=== PATIENT | female | born 1945 | race Caucasian/White ===

== ENCOUNTER → 2018-03-12 13:14 | Outpatient (CLI) | payer MEDICARE, OTHER, SELFPAY ==
--- NOTE | 2018-03-12 13:20 | CT_ITS ---
EXAM: CT LUNG LOW DOSE WO CONTRAST COMPARISON: Rib series from May 2017. PA and lateral chest from 2007 HISTORY: Smoker. One pack per day for 49 years equal 49 pack-year. Currently smoking . No symptoms of lung cancer TECHNIQUE: The exam was performed on a GE Light Speed [address] scanner using 3.0 mGy CTDI. A low dose helical CT CHEST was performed on a multi-detector scanner. All CT scans at this facility use one or more dose reduction techniques, viz.: automated exposure control; ma/kV adjustment per patient size (including targeted exams where dose is matched to indication; i.e. head) or iterative reconstruction technique. The LDCT was performed in a facility that meets the criteria for the screening program. Data regarding this exam was submitted to ACR which is an approved registry. The order for this exam indicates that it came as a result of a lung cancer screening counseling shard decision-making visit that included all the elements required of such a visit including smoking cessation. The radiologist interpreting this exam meets the CMS criteria for the LDCT lung cancer screening program. The exam is reported using the Lung-RADS classification scale and reported to the ACR registry. NOTE: This study was performed for the specific purposes of lung cancer screening and is not an alternative to diagnostic chest CT. RADIATION DOSE: CTDI vol(CT dose Index-volume) = 2.9mGy DLP (Dose Length Product) = 96.27 mGy-cm FINDINGS: No suspicious lung nodule or mass Indeterminate/Non-actionable Nodules(Category2): :. Small 3 mm X 4.2 mm height density at anterior periphery of the right upper lobe axial slice 31, sagittal 20. The follow-up in 10-12 months to be adequate.Based on the axial appearance. It may be related to scarring There is some scant linear scarring towards the right apex. Note minor tiny 3 mm nodular density associated as well. Axial image 15. Not of concern. is some minor density along the major fissure on the left axial image 43. Small sliding bilobed nodular density here I believe reflects some thickening at the inferior fissure. 5 mm x 4.5 mm. Tiny subpleural density axial slice 41 posterior right upper lobe just above the fissure. 2.5 mm size, barely evident. Emphysema: Mild centrilobular emphysematous changes . No focal infiltrate or pneumonia. No mediastinal adenopathy of significance. No mass. Scattered small nodes. No hilar adenopathy. Calcified aorta. Densely calcified left main and LAD. Heart normal size. Upper abdomen. Unremarkable. No pleural lesions. Chest wall appears satisfactory. T-spine intact with degenerative disc changes. There may be some very inferior endplate cavity at T12 T12 which could reflect minor old superior endplate compression changes but this is very subtle, negligible. Cervical Spondylosis lower C-spine most notable. Chest wall. (2 or 3 nodes seen overlying right chest wall at the far lateral right breast. These are rather low position for axillary lymph nodes. Largest measuring 12 mm length. Warrant follow-up palpation has patient had previous breast surgery-I don't see any clips or axillary dissection confirm such may merely be very modest breast. Few small unremarkable axillary nodes bilaterally appear normal. . IMPRESSION: 1. No suspicious lung nodule or mass. No significant hilar no mediastinal adenopathy. Airways upper normal thickness. No significant axillary adenopathy 2. Lung RADS Category: 2 Small pulmonary densities. Tiny nodules. Minimal observations. Follow-up LDCT 10 -12 months adequate 3. There are 2 or 3 lymph nodes at deep lateral right breast overlying chest wall;... Suggest physical exam to include palpation/of this ar
== END ==
PROVIDERS: Family Provider Nurse Practitioner Family; PCP Family Medicine; Visit Provider Family Medicine
DX: Z12.2 Encounter for screening for malignant neoplasm of respiratory organs (principal); Z87.891 Personal history of nicotine dependence

== ENCOUNTER → 2019-04-08 13:22 | Outpatient (CLI) | payer MEDICARE, OTHER, SELFPAY ==
--- NOTE | 2019-04-08 13:26 | CT_ITS ---
PROCEDURE: CT LUNG SCREENING CLINICAL INDICATION: H/O NICOTINE DEPENDENCE Thirty pack-year smoking history, asymptomatic for lung cancer COMPARISON: LUNGSCREEN CT lung screening from 03/12/2018 TECHNIQUE: The exam was performed on a GE orangutrans Speed [address] scanner using 2.90 mGy CTDI. A low dose helical CT CHEST was performed on a multi-detector scanner. All CT scans at the facility use one or more dose reduction, viz: automated exposure control, ma/kV adjustment per patient size (including targeted exams where dose is matched to indication, i.e. head), or iterative reconstruction technique. The LDCT was performed in a facility that meets the criteria for the screening program. Data regarding this exam was submitted to ACR which is an approved registry. The order for this exam indicates that it came as a result of a lung cancer screening counseling shard decision-making visit that included all the elements required of such a visit including smoking cessation. The radiologist interpreting this exam meets the CMS criteria for the LDCT lung cancer screening program. The exam is reported using the Lung-RADS classification scale and reported to the ACR registry. NOTE: This study was performed for the specific purposes of lung cancer screening and is not an alternative to diagnostic chest CT. RADIATION DOSE: CTDI vol(CT dose Index-volume) = 2.90mG DLP (Dose Length Product) = 100.03 mGcm FINDINGS: There are no previous exams available for comparison. There are several small noncalcified pulmonary nodules in the apices on both sides the largest in the right apex measuring up to 4 mm.. Coronary artery calcifications are present. No mediastinal or hilar mass. OTHER FINDINGS: Small hiatal hernia, COPD. Bilateral mastectomies. There is some nodularity noted in the right mid chest laterally and may be due to a lymph node measuring approximately 9 mm. IMPRESSION: Small bilateral upper lobe pulmonary nodular opacities. These are nonspecific and are 4 mm or less. There are no previous exams available for comparison. Suggest 3 month follow-up diagnostic chest CT to confirm short term stability in this patient that has had bilateral mastectomy. Coronary artery calcifications are present Lung rads category 4 mildly suspicious Recommend [address] follow-up Dictated by: Jj Khan MD 04/13/2019 09:56 Signed by: <Electronically signed by Jj Khan MD in [place]> 04/13/2019 09:56
== END ==
PROVIDERS: PCP Family Medicine; Visit Provider Family Medicine
DX: Z87.891 Personal history of nicotine dependence (principal); Z12.2 Encounter for screening for malignant neoplasm of respiratory organs

== ENCOUNTER 2020-07-29 00:26 | Emergency (ER) | payer MEDICARE, SELFPAY ==
[2020-07-29 00:36] VITALS: BP 164/83; PULSE 86; RESP 18; TEMP 36.7; O2SAT 96
--- NOTE | 2020-07-29 00:39 | CT_ITS ---
PROCEDURE: CT ABDOMEN PELVIS WO CON CLINICAL INDICATION: Left flank pain, hx kidney stones COMPARISON: No exams were available for comparison TECHNIQUE: Axial images obtained with sagittal and coronal reformats. All CT scans at the facility use one or more dose reduction, viz: automated exposure control, ma/kV adjustment per patient size (including targeted exams where dose is matched to indication, i.e. head), or iterative reconstruction technique. FINDINGS: Lower thorax: No acute finding ABDOMEN: Liver: No masses or biliary dilatation. Gallbladder: Nondistended. No radio opaque stones. Pancreas: No masses or peripancreatic fluid collections. Spleen: unremarkable Adrenals: unremarkable Kidneys/ureters: The right kidney and collecting system appear normal. There is swelling of the left kidney with prominent perinephric stranding and moderate hydronephrotic change. There is hydroureter down to the UV junction where there is apparent tiny 1-2 mm calculus either at the UV junction or in the tunnel entering the bladder. ABDOMEN & PELVIS: Stomach bowel: There is a small hiatal hernia. Stomach and duodenal sweep are grossly normal. The small bowel is normal. There is moderate scattered stool and gas seen throughout the colon. There is diffuse diverticulosis of the descending and sigmoid colon without definite evidence of diverticulitis. There is moderate stool in the rectum. Peritoneum: No abnormal fluid collections. No obvious inflammatory changes. No free air. Lymph nodes: No enlarged lymph nodes apparent. Vasculature: There is prominent diffuse arthrosclerotic calcification of the abdominal aorta and proximal iliac arteries but no evidence of aneurysm. No evidence of abdominal aortic aneurysm. . Bones: There is mild sclerosis along with subchondral cysts in the left femoral head the appearance suggesting avascular necrosis. PELVIS: Reproductive: The uterus is normal in size and in the midline. Bladder: The urinary bladder is decompressed, there is no free fluid in the pelvis. Appendix: Unremarkable. No distention or periappendiceal phlegmonous change. IMPRESSION: Tiny distal ureteral calculus at the UV junction or in the tunnel left-side causing moderate obstructive uropathy of the left kidney. 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 Billy Tolentino MD 07/29/2020 08:21 Dr. Billy Tolentino MD in [place] 07/29/2020 08:21
[2020-07-29 00:51] LABS: Microscopic, Urine URINE MICROSCOPIC (MICROSCOPIC)
[2020-07-29 00:52] LABS: Appearance,Urine SL CLOUDY (Clear); Bilirubin,Urine Negative (Negative); Blood, Urine 3+ (Negative); Color,Urine YELLOW (Yellow); Glucose,Urine (UA) Negative (Negative); Ketones,Urine Negative (Negative); Leukocyte Esterase,Urine Negative (Negative); Nitrate,Urine Negative (Negative); Protein,Urine 1+ (Negative); Specific Gravity, Urine >= 1.030 (1.005-1.030); Urobilinogen,Urine 0.2 EU/dl (0.2)
[2020-07-29 00:55] LABS: RBC,Urine 20-50 #/hpf (0-3)
[2020-07-29 00:59] LABS: Basophils # 0.1 K/mm3 (0-0.2); Basophils % 0.4 % (0.1-2.0); Eosinophils # 0.2 K/mm3 (0.0-0.4); Hematocrit 45.8 % (37.0-47.0); Hemoglobin 14.7 g/dL (12.2-16.2); Lymphocytes # 1.7 K/mm3 (0.7-4.5); Lymphocytes % 9.9 % (10-50); Mean Corpuscular HGB Conc 32.1 g/dL (31.8-35.4); Mean Corpuscular Hemoglobin 31.6 pg (27.0-31.2); Mean Corpuscular Volume 98.5 fl (81-99); Mean Platelet Volume 8.6 fl (7.4-10.4); Monocytes # 0.6 K/mm3 (0.1-1.0); Monocytes % 3.2 % (1.7-9.3); Neutrophils % 85.5 % (37.0-80.0); Platelet Count 223 K/mm3 (142-424); Red Blood Count 4.65 M/mm3 (4.20-5.40); Red Cell Distribution Width 13.1 % (11.5-17.5); White Blood Count 17.6 K/mm3 (4.8-10.8)
[2020-07-29 01:01] LABS: MANUAL DIFFERENTIAL MANUAL DIFFERENTIAL (MANUAL DIFF)
[2020-07-29 01:10] LABS: Alanine Aminotransferase 12 U/L (12-78); Albumin Level 4.7 g/dl (3.5-5.0); Albumin/Globulin Ratio 1.3 (1.1-1.8); Alkaline Phosphatase 90 U/L (38-126); Anion Gap 13.7 mEq/L (5-15); Aspartate Amino Transferase 23 U/L (14-36); Bilirubin,Total 0.5 mg/dl (0.2-1.3); Blood Urea Nitrogen 17 mg/dl (7-17); Calcium 10.2 mg/dl (8.4-10.2); Carbon Dioxide 28 mmol/L (22.0-30.0); Chloride 102 mmol/L (98-107); Creatinine Clearance Estimated 49 mL/min (50-200); Estimated Glomerular Filt Rate 49 ml/min (>60); GFR (African American) 59 ML/MIN (>60); Globulin 3.5 g/dL (1.3-3.2); Glucose 152 mg/dl (74-100); Potassium 3.7 mmoL/L (3.5-5.1); Sodium 140 mmol/L (136-145); Total Protein,Serum 8.2 g/dl (6.3-8.2)
[2020-07-29 01:15] LABS: Lymphocytes % 11 % (10-50); Macrocytosis 1+; Monocytes % 3 % (2-9); Neutrophils % 84 % (42-76); Platelet Estimate Normal; Total Cells Counted 100
[2020-07-29 02:01] VITALS: BP 167/102; PULSE 85; RESP 16; TEMP 36.6; O2SAT 97
--- NOTE | 2020-07-29 02:15 | HMH.EDGENADL ---
ED Disposition Clinical Impression: Kidney stone Disposition: Home, Self-Care Condition on Discharge: Good Additional Instructions: Follow up with Urology. Return with fever > 100.4, inability to tolerate fluids, severe pain even with oral pain medication. Prescriptions: Ibuprofen [Ibuprofen 600mg Tablet] 600 mg PO Q6HP PRN #20 tab PRN Reason: Moderate Pain Prescription Printed Hydrocodone/Acetaminophen [Oran 5-325 Tablet] 1 each PO Q6HP PRN #6 tab PRN Reason: Severe Pain Prescription Printed Tamsulosin HCl [Flomax 0.4mg capsule] 0.4 mg PO HS #7 cap Prescription Printed Ondansetron [Zofran 4mg ODT] 4 mg PO TIDP PRN #9 tab PRN Reason: Nausea And Vomiting Prescription Printed Referrals: Elina Siemon MD [Primary Care Provider] - Phani Arroyo MD [Staff Physician] - - Critical Care Critical Care Time: No Attestation: On 07/29/20, the high probability of a clinically significant, sudden or life threatening deterioration of the following system(s) required my full and direct attention, intervention and personal management. The time I documented below is in addition to time spent performing reported procedures but includes the following listed in this critical care notation. Medical Decision Making - Medical Records Medical records reviewed: Yes: I reviewed the patient's medical records. - Josiah Inquiry Pt receiving controlled substance: Yes Josiah was queried for this patient: No Reason not queried -: Josiah login issues Risks and benefits of using a controlled substance: were discussed with pt by me Vital Signs: 07/29/20 00:36 07/29/20 02:00 07/29/20 02:01 Temperature 98.1 F 97.9 F Temperature Source Oral Oral Pulse Rate 85 Pulse Rate [Right] 86 Respiratory Rate 18 16 Blood Pressure 167/102 H Blood Pressure [Right Arm] 164/83 H Blood Pressure Mean [Right Arm] 110 Blood Pressure Source Automatic Cuff Blood Pressure Source [Right Arm] Automatic Cuff Blood Pressure Position Sitting Blood Pressure Position [Right Arm] Sitting 02 Sat by Pulse Oximetry 96 Oxygen Delivery Method Room Air Room Air Room Air - Lab Data Lab Results 07/29/20 00:45: Urine Color Yellow, Urine Appearance Sl cloudy, Urine pH 6.0, Ur Specific Conifer >= 1.030, Urine Protein 1+, Urine Glucose (UA) Negative, Urine Ketones Negative, Urine Blood 3+, Urine Nitrate Negative, Urine Bilirubin Negative, Urine Urobilinogen 0.2, Ur Leukocyte Esterase Negative, Urine RBC 20-50, Ur Squamous Epith Cells 3-5 07/29/20 00:50: WBC 17.6 H, RBC 4.65, Hgb 14.7, Hct 45.8, MCV 98.5, MCH 31.6 H, MCHC 32.1, RDW 13.1, Plt Count 223, MPV 8.6, Neut % (Auto) 85.5 H, Lymph % (Auto) 9.9 L, Frontier % (Auto) 3.2, Eos % (Auto) 1.0, Baso % (Auto) 0.4, Neut # (Auto) 15.0 H, Lymph # (Auto) 1.7, Frontier # (Auto) 0.6, Eos # (Auto) 0.2, Baso # (Auto) 0.1, Total Counted 100, Neutrophils % (Manual) 84 H, Band Neutrophils % 2.0, Lymphocytes % (Manual) 11, Monocytes % (Manual) 3, Platelet Estimate Normal, Macrocytosis 1+ 07/29/20 00:50: Sodium 140, Potassium 3.7, Chloride 102, Carbon Dioxide 28, Anion Gap 13.7, BUN 17, Creatinine 1.10 H, Estimated Creat Clear 49, Estimated GFR 49 L, Est GFR ( Amer) 59, Glucose 152 H, Calcium 10.2, Total Bilirubin 0.5, AST 23, ALT 12, Alkaline Phosphatase 90, Total Protein 8.2, Albumin 4.7, Globulin 3.5 H, Albumin/Globulin Ratio 1.3 Result diagrams: 07/29/20 00:50 07/29/20 00:50 Orders (Tests/Meds): ED MEDICATIONS Discontinued Medications Generic Name Dose Route Start Last Admin Trade Name Freq PRN Reason Stop Dose Admin Lactated Ringer's 1,000 mls @ 999 mls/hr 07/29/20 00:45 07/29/20 00:55 Lactated Ringer's 1000 Ml Bag IV 07/29/20 01:45 999 mls/hr .Q1H1M DENISE Administration Ketorolac Tromethamine 15 mg 07/29/20 00:39 07/29/20 00:54 Ketorolac 30mg/Ml Vial IV 07/29/20 00:40 15 mg ONCE ONE Administration Ondansetron HCl 4 mg 07/29/20 00:38 07/29/20 00:54 Onda
== END 2020-07-29 02:05 | disposition home or self-care (01) ==
PROVIDERS: Emergency Provider Emergency Medicine; PCP Family Medicine
DX: N20.0 Calculus of kidney (principal); E78.5 Hyperlipidemia, unspecified; F17.210 Nicotine dependence, cigarettes, uncomplicated
CPT/HCPCS: 74176; 80053; 81001; 85007; 85025; 96365; 96375; 99283; J2405

== ENCOUNTER 2023-02-08 23:03 | Emergency (ER) | payer MEDICARE, SELFPAY ==
[2023-02-08 23:04] VITALS: BP 200/100; PULSE 67; RESP 20; TEMP 36.6; O2SAT 98; BMI 28.3
[2023-02-08 23:23] LABS: Microscopic, Urine URINE MICROSCOPIC (MICROSCOPIC)
[2023-02-08 23:25] LABS: Appearance,Urine SL CLOUDY (Clear); Blood, Urine 3+ (Negative); Color,Urine BROWN (Yellow); Glucose,Urine (UA) Negative (Negative); Ketones,Urine Negative (Negative); Leukocyte Esterase,Urine Negative (Negative); Nitrate,Urine Negative (Negative); PH,Urine 6.5 (5.0-8.5); Protein,Urine 2+ (Negative); Specific Gravity, Urine 1.025 (1.005-1.030)
[2023-02-08 23:27] LABS: Bilirubin,Urine 1+ (Negative)
[2023-02-08 23:31] LABS: Bacteria,Urine Trace /lpf; RBC,Urine 20-50 #/hpf (0-3); WBC,Urine Occasional #/hpf (0-3)
[2023-02-08 23:33] LABS: Basophils % 0.5 % (0.1-2.0); Eosinophils # 0.1 K/mm3 (0.0-0.4); Eosinophils % 1.3 % (0.1-12.0); Hemoglobin 13.3 g/dL (12.2-16.2); Lymphocytes % 36.2 % (10-50); Mean Corpuscular HGB Conc 32.5 g/dL (31.8-35.4); Mean Corpuscular Hemoglobin 30.6 pg (27.0-31.2); Mean Corpuscular Volume 94.1 fl (81-99); Mean Platelet Volume 8.4 fl (7.4-10.4); Monocytes # 0.6 K/mm3 (0.1-1.0); Monocytes % 7.3 % (1.7-9.3); Neutrophils # 4.5 K/mm3 (1.8-7.8); Neutrophils % 54.7 % (37.0-80.0); Platelet Count 256 K/mm3 (142-424); Red Blood Count 4.36 M/mm3 (4.20-5.40); Red Cell Distribution Width 13.1 % (11.5-17.5); White Blood Count 8.3 K/mm3 (4.8-10.8)
[2023-02-08 23:43] LABS: Alanine Aminotransferase 15 U/L (12-78); Albumin/Globulin Ratio 1.3 (1.1-1.8); Alkaline Phosphatase 81 U/L (38-126); Anion Gap 11.9 mEq/L (5-15); Aspartate Amino Transferase 23 U/L (14-36); Bilirubin,Total 0.5 mg/dl (0.2-1.3); Blood Urea Nitrogen 21 mg/dl (7-17); Calcium 9.3 mg/dl (8.4-10.2); Carbon Dioxide 33 mmol/L (22.0-30.0); Chloride 101 mmol/L (98-107); Creatinine Clearance Estimated 50 mL/min (50-200); Estimated Glomerular Filt Rate 61 ml/min (>60); GFR (African American) 74 ML/MIN (>60); Glucose 108 mg/dl (74-100); Sodium 143 mmol/L (136-145)
[2023-02-08 23:44] LABS: Potassium 2.9 mmoL/L (3.5-5.1)
--- NOTE | 2023-02-08 23:44 | PC.NURSE ---
notified arleth of critical potassium 2.9
--- NOTE | 2023-02-09 00:10 | CT_ITS ---
PROCEDURE INFORMATION: Exam: CT Abdomen And Pelvis Without Contrast Exam date and time: 02/09/2023 12:34 AM Age: 77 years old Clinical indication: Abdominal pain; Additional info: R/O stone, hematuria w/ back pain TECHNIQUE: Imaging protocol: Computed tomography of the abdomen and pelvis without contrast. Total images: 278 Radiation optimization: All CT scans at this facility use at least one of these dose optimization techniques: automated exposure control; mA and/or kV adjustment per patient size (includes targeted exams where dose is matched to clinical indication); or iterative reconstruction. REPORTING DATA: Count of CT and Cardiac NM exams in prior 12 months: This patient has received 0 known CTs and 0 known cardiac nuclear medicine studies in the 12 months prior to the current study. COMPARISON: CT ABDOMEN PELVIS WO CON 07/29/2020 1:13 AM FINDINGS: Lungs: Fine linear basilar atelectasis or scarring. Heart: Normal heart size. Trace pericardial fluid versus thickening. Coronary arteries: Coronary artery calcifications. Diaphragm: Small hiatal hernia. Liver: Stable subcentimeter left hepatic hypodensity in keeping with benign cyst. No liver mass. Normal size and contour. Gallbladder and bile ducts: Normal. No calcified stones. No ductal dilation. Pancreas: Normal. No ductal dilation. Spleen: Normal. No splenomegaly. Adrenal glands: Stable mild thickening lateral limb right adrenal gland. Kidneys and ureters: [id number] left hydronephrosis and hydroureter. No nephrolithiasis or ureteral stones. Asymmetric left perinephric edema and trace fluid. Dilated left ureter transitions to a collapsed distal ureter at the level of the pelvic inlet without visualized stone. Stomach and bowel: Mild gastric distention with recently ingested content. No ileus or bowel obstruction. Subjective wall thickening proximal jejunum may reflect enteritis. Moderate colonic and rectal stool burden. Severe diverticulosis of the descending colon. No acute diverticulitis. Appendix: Normal appendix. Intraperitoneal space: Nonspecific benign appearing 2 cm cyst in the left paracolic gutter, increased in size from 16 mm on the prior study. No ascites. No free air. Vasculature: Severely atherosclerotic abdominal aorta without aneurysm. Lymph nodes: Unremarkable. No enlarged lymph nodes. Urinary bladder: Collapsed bladder. No bladder stones. Reproductive: Atrophic uterus and ovaries. Bones/joints: Osteopenia. Mild degenerative changes thoracolumbar spine. Degenerative change and chronic avascular necrosis left femoral head with subchondral collapse and subchondral cystic changes, progressed from prior exam. Soft tissues: Unremarkable. IMPRESSION: 1. [id number] left hydronephrosis and hydroureter to the level of the pelvic inlet. No visualized ureteral stone. Rule out ureteral stricture or nonvisualized ureteral lesion. Recommend follow-up urology consultation. 2. No nephrolithiasis. 3. Asymmetric left perinephric edema from obstructive uropathy versus superimposed infection/pyelonephritis. 4. Severe diverticulosis of the descending colon without diverticulitis. 5. Interval worsening chronic AVN left femoral head. 6. Additional chronic and incidental findings.
--- NOTE | 2023-02-09 00:45 | PC.NURSE ---
Rounded on pt. Updated that we are waiting on scan results. No other needs at this time.
--- NOTE | 2023-02-09 02:22 | HMH.EDUROGF ---
Discharge Plan Disposition Patient Disposition: Home, Self-Care Prescriptions Prescriptions: New cephalexin [cephalexin] 500 mg capsule 500 mg PO TID Qty: 21 0RF No Action lovastatin 40 MG tablet 40 mg PO DAILY hydrocodone-acetaminophen 1 EACH tablet 1 each PO Q6HP PRN (Reason: Severe Pain) Qty: 6 0RF ondansetron 4 MG tablet,disintegrating 4 mg PO TIDP PRN (Reason: Nausea And Vomiting) Qty: 9 0RF tamsulosin 0.4 MG capsule 0.4 mg PO HS Qty: 7 0RF Rx Instructions: take once per day until stone is passed ibuprofen 600 MG tablet 600 mg PO Q6HP PRN (Reason: Moderate Pain) Qty: 20 0RF Referrals Follow up/Referrals: Elina Simeon MD [Primary Care Provider] - See instructions Huy Palmer MD [Referring] - See instructions Clinical Impressions Clinical Impression: Hydronephrosis, Acute left flank pain Instructions Patient Instructions: DI for Flank Pain Discharge ED Provider: Jeffery (ED)Han Female Urogenital HPI General Chief complaint: Urogenital-Female Stated complaint: possible kidney stone Time Seen by Provider: 02/09/23 02:00 Mode of Arrival: Ambulatory Source of Information: Patient, Relative and Medical Record Limitations: No Limitations Description of Symptoms (Recalled from ER Triage Doc. by RN): Pt states she has had a decrease in her urine output, bilateral lower back pain and nausea for the past few days. Pt has hx of kidney stones and states she believes it to be a stone. History of Present Illness HPI Narrative: pt with lt flank pain with nausea over the last few days and dec urine output Complaint: other (flank pain) Onset (ago): day(s) Severity: moderate Duration: intermittent Related Data Home Medications Medication Instructions Recorded Confirmed lovastatin 40 mg tablet 40 mg PO DAILY Cholesterol 07/29/20 07/29/20 Previous Rx's Medication Instructions Recorded hydrocodone 5 mg-acetaminophen 325 1 each PO Q6HP PRN Severe Pain #6 07/29/20 mg tablet tabs ibuprofen 600 mg tablet 600 mg PO Q6HP PRN Moderate Pain 07/29/20 #20 tabs ondansetron 4 mg disintegrating 4 mg PO TIDP PRN Nausea And 07/29/20 tablet Vomiting #9 tabs tamsulosin 0.4 mg capsule 0.4 mg PO HS #7 caps 07/29/20 cephalexin 500 mg capsule 500 mg PO TID #21 caps 02/09/23 Allergies Allergy/AdvReac Type Severity Reaction Status Date / Time aspirin AdvReac Verified 07/29/20 01:04 [facility] Disclaimer: The information contained in this section may have been updated after the patient was seen, as this information can be updated by other users. Social History Smoking Status: Current every day smoker tobacco type: cigarettes packs per day: 1 alcohol intake: current current occupational status: retired Travel in the last 8 weeks: None ROS Obtained: Yes All systems reviewed & no additional complaints except as documented Physical Exam General General appearance: alert Head Head exam: normocephalic Eye Eye exam: Present PERRL and EOMI ENT ENT exam: Present mucous membranes moist Neck Neck exam: Present trachea midline Respiratory Respiratory exam: Present normal lung sounds bilaterally; Absent respiratory distress Cardiovascular Cardiovascular exam: Present regular rate Abdominal Exam Abdominal exam: Present soft; Absent tenderness, guarding or rebound Extremities Exam Extremities exam: Absent joint swelling Back Exam Back exam: Present CVA tenderness (L); Absent vertebral tenderness Neurological Exam Neurological exam: Present alert, oriented X3 and CN II-XII intact; Absent motor sensory deficit Psychiatric Psychiatric exam: Present normal affect Skin Skin exam: Absent rash Medical Decision Making Medical Records Medical records reviewed: Yes I reviewed the patient's medical records. Josiah Inquiry Pt receiving controlled substance: No Vital Signs: 02/08/23 23:04 Temperature 97.9 F Temperature Source Oral Pulse Rate [Left] 67
[2023-02-09 02:44] VITALS: BP 132/84; PULSE 81; RESP 18; TEMP 36.6
== END 2023-02-09 02:46 | disposition home or self-care (01) ==
PROVIDERS: Emergency Provider Emergency Medicine; PCP Family Medicine
DX: N13.30 Unspecified hydronephrosis (principal); R10.9 Unspecified abdominal pain; F17.210 Nicotine dependence, cigarettes, uncomplicated
CPT/HCPCS: 74176; 80053; 81001; 85025; 87086; 87088; 87186; 96361; 96374; 96375; 99284; 99285; J2405

== ENCOUNTER 2023-03-31 17:26 | Emergency (ER) | payer MEDICARE, SELFPAY ==
[2023-03-31 17:27] VITALS: BP 193/78; PULSE 75; RESP 18; TEMP 36.6; O2SAT 99; BMI 26.9
[2023-03-31 17:47] LABS: Microscopic, Urine URINE MICROSCOPIC (MICROSCOPIC)
[2023-03-31 17:49] LABS: Basophils % 0.3 % (0.1-2.0); Eosinophils # 0.2 K/mm3 (0.0-0.4); Hematocrit 42.2 % (37.0-47.0); Hemoglobin 13.3 g/dL (12.2-16.2); Lymphocytes # 2.2 K/mm3 (0.7-4.5); Lymphocytes % 26.5 % (10-50); Mean Corpuscular HGB Conc 31.6 g/dL (31.8-35.4); Mean Corpuscular Hemoglobin 31.7 pg (27.0-31.2); Mean Corpuscular Volume 100.1 fl (81-99); Mean Platelet Volume 8.9 fl (7.4-10.4); Monocytes # 0.6 K/mm3 (0.1-1.0); Monocytes % 6.6 % (1.7-9.3); Neutrophils # 5.5 K/mm3 (1.8-7.8); Neutrophils % 64.7 % (37.0-80.0); Platelet Count 164 K/mm3 (142-424); Red Blood Count 4.21 M/mm3 (4.20-5.40); Red Cell Distribution Width 12.7 % (11.5-17.5); White Blood Count 8.4 K/mm3 (4.8-10.8)
[2023-03-31 18:02] LABS: Alanine Aminotransferase 19 U/L (12-78); Albumin Level 4.4 g/dl (3.5-5.0); Albumin/Globulin Ratio 1.3 (1.1-1.8); Alkaline Phosphatase 81 U/L (38-126); Anion Gap 10.6 mEq/L (5-15); Aspartate Amino Transferase 22 U/L (14-36); Bilirubin,Total 0.6 mg/dl (0.2-1.3); Blood Urea Nitrogen 16 mg/dl (7-17); Calcium 10.2 mg/dl (8.4-10.2); Carbon Dioxide 31 mmol/L (22.0-30.0); Chloride 104 mmol/L (98-107); Creatinine Clearance Estimated 47 mL/min (50-200); Estimated Glomerular Filt Rate 61 ml/min (>60); GFR (African American) 74 ML/MIN (>60); Globulin 3.3 g/dL (1.3-3.2); Glucose 121 mg/dl (74-100); Potassium 3.6 mmoL/L (3.5-5.1); Sodium 142 mmol/L (136-145); Total Protein,Serum 7.7 g/dl (6.3-8.2)
[2023-03-31 18:03] LABS: Appearance,Urine SL CLOUDY (Clear); Blood, Urine 3+ (Negative); Color,Urine YELLOW (Yellow); Glucose,Urine (UA) Negative (Negative); Ketones,Urine TRACE (Negative); Leukocyte Esterase,Urine Negative (Negative); Nitrate,Urine Negative (Negative); PH,Urine 5.5 (5.0-8.5); Protein,Urine TRACE (Negative); Specific Gravity, Urine >= 1.030 (1.005-1.030)
[2023-03-31 18:14] LABS: Bilirubin,Urine 1+ (Negative)
--- NOTE | 2023-03-31 18:18 | HMH.EDGENADL ---
Discharge Plan Disposition Patient Disposition: Home, Self-Care Condition: Good Prescriptions Prescriptions: New tamsulosin [Flomax] 0.4 mg capsule 0.4 mg PO DAILY Qty: 20 0RF Discontinued tamsulosin 0.4 MG capsule 0.4 mg PO HS Qty: 7 0RF Rx Instructions: take once per day until stone is passed No Action lovastatin 40 MG tablet 40 mg PO DAILY hydrocodone-acetaminophen 1 EACH tablet 1 each PO Q6HP PRN (Reason: Severe Pain) Qty: 6 0RF ondansetron 4 MG tablet,disintegrating 4 mg PO TIDP PRN (Reason: Nausea And Vomiting) Qty: 9 0RF ibuprofen 600 MG tablet 600 mg PO Q6HP PRN (Reason: Moderate Pain) Qty: 20 0RF cephalexin [cephalexin] 500 mg capsule 500 mg PO TID Qty: 21 0RF Referrals Follow up/Referrals: Elina Simeon MD [Primary Care Provider] - See instructions Clinical Impressions Clinical Impression: Kidney stone Hydronephrosis Qualifiers: Hydronephrosis type: with renal calculous obstruction Qualified Code(s): N13.2 - Hydronephrosis with renal and ureteral calculous obstruction Instructions Patient Instructions: DI for Low Back Pain Discharge ED Provider: Donaldo Miramontes General Adult HPI General Chief complaint: Back Pain/Injury Stated complaint: kidney stone Time Seen by Provider: 03/31/23 18:08 Mode of Arrival: Ambulatory Limitations: No Limitations Description of Symptoms (Recalled from ER Triage Doc. by RN): PT WITH LEFT FLANK PAIN THAT RADIATES TO GROIN, STARTED ABOUT 1-2 HOURS AGO. REPORTS NAUSEA, HX OF KIDNEY STONES History of Present Illness HPI narrative: Patient presents for evaluation of left flank pain, gradual in onset starting today, constant, stable in course, mild in severity, consistent with history of urolithiasis that is required no operative intervention in the past. No associated fevers or chills, no nausea or vomiting, no pain elsewhere, pain is located on the left side and occasionally radiates to groin area. Patient has not noted hematuria or dysuria. No chest pain or palpitations. No syncope or presyncope. Related Data Home Medications Medication Instructions Recorded Confirmed lovastatin 40 mg tablet 40 mg PO DAILY Cholesterol 07/29/20 07/29/20 Previous Rx's Medication Instructions Recorded hydrocodone 5 mg-acetaminophen 325 1 each PO Q6HP PRN Severe Pain #6 07/29/20 mg tablet tabs ibuprofen 600 mg tablet 600 mg PO Q6HP PRN Moderate Pain 07/29/20 #20 tabs ondansetron 4 mg disintegrating 4 mg PO TIDP PRN Nausea And 07/29/20 tablet Vomiting #9 tabs cephalexin 500 mg capsule 500 mg PO TID #21 caps 02/09/23 tamsulosin 0.4 mg capsule (Flomax) 0.4 mg PO DAILY #20 caps 03/31/23 Allergies Allergy/AdvReac Type Severity Reaction Status Date / Time aspirin AdvReac Verified 07/29/20 01:04 [facility] Disclaimer: The information contained in this section may have been updated after the patient was seen, as this information can be updated by other users. Social History Smoking Status: Current every day smoker tobacco type: cigarettes packs per day: 1 alcohol intake: current current occupational status: retired Travel in the last 8 weeks: None ROS Obtained: Yes Systems reviewed as appropriate & no additional complaints except as documented Physical Exam General General appearance: alert and in no apparent distress Head Head exam: atraumatic and normocephalic Eye Eye exam: Present normal appearance Neck Neck exam: Present normal inspection Chest Chest inspection: Present normal inspection and symmetric chest wall rise Respiratory Respiratory exam: Present normal lung sounds bilaterally; Absent respiratory distress Cardiovascular Cardiovascular exam: Present regular rate and normal rhythm Abdominal Exam Abdominal exam: Present soft and other (Left CVA tenderness to percussion) Neurological Exam Neurological exam: Present alert and oriented X3 Psychiatric Psychiatric exam: Present normal affect and
--- NOTE | 2023-03-31 18:21 | CT_ITS ---
PROCEDURE INFORMATION: Exam: CT Abdomen And Pelvis Without Contrast Exam date and time: 03/31/2023 6:26 PM Age: 77 years old Clinical indication: Abdominal pain; Flank; Right; Additional info: Concern for urolithiasis TECHNIQUE: Imaging protocol: Computed tomography of the abdomen and pelvis without contrast. Radiation optimization: All CT scans at this facility use at least one of these dose optimization techniques: automated exposure control; mA and/or kV adjustment per patient size (includes targeted exams where dose is matched to clinical indication); or iterative reconstruction. REPORTING DATA: Count of CT and Cardiac NM exams in prior 12 months: This patient has received [address] and 0 known cardiac nuclear medicine studies in the 12 months prior to the current study. COMPARISON: CT ABDOMEN PELVIS WO CON 02/09/2023 12:34 AM FINDINGS: Lungs: Minimal scattered subsegmental atelectasis and/or scarring. Coronary arteries: Heavy coronary artery calcifications. Diaphragm: Small hiatal hernia. Liver: Normal. No mass. Gallbladder and bile ducts: Normal. No calcified stones. No ductal dilation. Pancreas: Normal. No ductal dilation. Spleen: Normal. No splenomegaly. Adrenal glands: Stable mild nodular thickening of the right adrenal gland. Kidneys and ureters: 2 mm stone within the mid to distal left ureter. [id number] upstream dilation of the urinary collecting system. Mild proximal to mid left periureteral fat stranding. Unremarkable right kidney. Stomach and bowel: Colonic diverticulosis without evidence of acute diverticulitis. Normal caliber. Appendix: No evidence of appendicitis. Intraperitoneal space: Stable 2 cm cystic focus within the left paracolic gutter. Vasculature: Heavy aortic root calcifications. Heavy atherosclerotic changes of the abdominal aorta and iliac arteries without aneurysmal dilatation. Lymph nodes: Unremarkable. No enlarged lymph nodes. Urinary bladder: Decompressed urinary bladder. Circumferential urinary bladder wall thickening. Reproductive: Unremarkable as visualized. 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 Degenerative changes of the spine, hips, and SI joints. Soft tissues: Postsurgical changes of bilateral mastectomy. Tiny fat containing umbilical hernia. IMPRESSION: 1. 2 mm stone within the mid to distal left ureter with [id number] upstream hydroureteronephrosis. 2. Circumferential urinary bladder wall thickening likely related to incomplete distention; however, correlate for cystitis. 3. Colonic diverticulosis without evidence of acute diverticulitis.
--- NOTE | 2023-03-31 18:26 | PC.NURSE ---
PT TO CT
[2023-03-31 18:34] LABS: Bacteria,Urine Trace /lpf; Calcium Oxalate Crystals,Urine 1+ /lpf; RBC,Urine TNTC #/hpf (0-3); WBC,Urine Occasional #/hpf (0-3)
--- NOTE | 2023-03-31 18:36 | PC.NURSE ---
pt back from CT
--- NOTE | 2023-03-31 18:41 | PC.NURSE ---
PT RETURNED FROM CT
[2023-03-31 19:35] VITALS: BP 160/78; PULSE 75; RESP 19; TEMP 36.8; O2SAT 98
== END 2023-03-31 19:37 | disposition home or self-care (01) ==
PROVIDERS: Emergency Provider Emergency Medicine; PCP Family Medicine
DX: N13.2 Hydronephrosis with renal and ureteral calculous obstruction (principal); F17.210 Nicotine dependence, cigarettes, uncomplicated
CPT/HCPCS: 74176; 80053; 81001; 85025; 96374; 96375; 99285; J0131; J2405

== ENCOUNTER 2025-04-24 07:02 | Emergency (ER) | payer MEDICARE, SELFPAY ==
[2025-04-24] VITALS (8 sets, daily range): BP systolic 167–217; BP diastolic 78–108; PULSE 63–88; RESP 18–20; TEMP 36.6–36.7; O2SAT 96–99; BMI 24.4
--- NOTE | 2025-04-24 07:18 | HMH.EDGENADL ---
Discharge Plan Disposition Patient Disposition: Left Against Medical Advice Condition: Fair Prescriptions Prescriptions: No Action tamsulosin [Flomax] 0.4 mg capsule 0.4 mg PO DAILY Qty: 20 0RF lovastatin 40 MG tablet 40 mg PO DAILY hydrocodone-acetaminophen 1 EACH tablet 1 each PO Q6HP PRN (Reason: Severe Pain) Qty: 6 0RF ondansetron 4 MG tablet,disintegrating 4 mg PO TIDP PRN (Reason: Nausea And Vomiting) Qty: 9 0RF ibuprofen 600 MG tablet 600 mg PO Q6HP PRN (Reason: Moderate Pain) Qty: 20 0RF cephalexin [cephalexin] 500 mg capsule 500 mg PO TID Qty: 21 0RF Referrals Follow up/Referrals: Elina Simeon MD [Primary Care Provider, Medical] - See instructions Clinical Impressions Clinical Impression: Lumbar back pain, Solitary pulmonary nodule on lung CT Instructions Patient Instructions: DI for Urinary Tract Infection (UTI), DI for Urinary Tract Infection in Children Print Language Print Language: Ukrainian Discharge ED Provider: Huy Carter Adult HPI General Chief complaint: Urogenital-Female Stated complaint: poss kidney stone Time Seen by Provider: 04/24/25 07:18 Mode of Arrival: Ambulatory Source of Information: Patient Description of Symptoms (Recalled from ER Triage Doc. by RN): pt reports lópez lower back pain with urinary symptoms. has a hx of kidney stones but is unsure if this is the same. History of Present Illness HPI narrative: Patient is a 71-year-old female with history of kidney stones and hyperlipidemia. She is presenting today with bilateral lower back pain that began acutely about 3 days ago and has been persistent. She has taken Tylenol at home with minimal relief. She reports some change in her urination with some dysuria, but denies any overt hematuria. Denies any fevers. Endorses nausea without vomiting. No diarrhea. Last bowel movement was 2 days ago, she is still passing gas. She has no history of abdominal surgeries. She has a kidney stones before that were managed symptomatically last in 2022, per my review of the EMR. Denies any sick contacts. She also reports that she has had a productive cough over the last 3 days, but denies any overt chest pain or shortness of breath. Related Data Home Medications ?Medication ?Instructions ?Recorded ?Confirmed lovastatin 40 mg tablet 40 mg PO DAILY Cholesterol 07/29/20 07/29/20 Previous Rx's ?Medication ?Instructions ?Recorded hydrocodone 5 mg-acetaminophen 325 1 each PO Q6HP PRN Severe Pain #6 07/29/20 mg tablet tabs ibuprofen 600 mg tablet 600 mg PO Q6HP PRN Moderate Pain 07/29/20 #20 tabs ondansetron 4 mg disintegrating 4 mg PO TIDP PRN Nausea And 07/29/20 tablet Vomiting #9 tabs cephalexin 500 mg capsule 500 mg PO TID #21 caps 02/09/23 tamsulosin 0.4 mg capsule (Flomax) 0.4 mg PO DAILY #20 caps 03/31/23 Allergies Allergy/AdvReac Type Severity Reaction Status Date / Time aspirin AdvReac Verified 07/29/20 01:04 [facility] Disclaimer: The information contained in this section may have been updated after the patient was seen, as this information can be updated by other users. Social History Smoking Status: Current every day smoker tobacco type: cigarettes packs per day: 1 alcohol intake: current alcohol intake frequency: a few times a month current occupational status: retired Travel in the last 8 weeks?: None Have you lived/traveled outside US in past 30 days?: No Contact w/someone who lives/traveled outside US past 30 days?: No Exposure to someone with infectious disease in past 14 days?: No Do you have a fever (greater than 100.4 F or 38 C)?: No Have you tested positive for COVID-19?: No Exposed to someone with COVID-19 in past 14 days?: No Do you have a sore throat?: No Do you have a cough?: No Do you have any weakness?: No Do you have any diarrhea?: No Are you experiencing any unusual bleeding?: No Do you have any muscle aches/pain?: No Do you have any abdominal pain?: No Are you experiencing loss of taste or smell?: No Other Medical History Have you received the Flu Vaccine for this season: No Have you received the Pneumonia Vaccine: Yes ROS Obtained: Yes All systems reviewed & no additional complaints except as documented Physical Exam General General appearance: alert and in no apparent distress Head Head exam: atraumatic and normocephalic Eye Eye exam: Present PERRL and EOMI ENT ENT exam: Present normal oropharynx Neck Neck exam: Present full ROM and trachea midline Chest Chest inspection: Present symmetric chest wall rise Respiratory Respiratory exam: Present normal lung sounds bilaterally; Absent stridor Cardiovascular Cardiovascular exam: Present regular rate and normal rhythm Abdominal Exam Abdominal exam: Present soft; Absent distention or tenderness Extremities Exam Extremities exam: Present full ROM Back Exam Back exam: Present tenderness (Tenderness diffusely across the paraspinal lumbar area with some left CVA tenderness) Neurological Exam Neurological exam: Present alert and oriented X3 Psychiatric Psychiatric exam: Present normal mood Skin Skin exam: Present warm and dry Medical Decision Making Medical Records Screening: Per USPSTF and CDC recommendations, given the prevalence of disease in our region, it is our hospital?s policy to screen for HIV and viral Hepatitis for all patients aged 18 and over and those with ongoing risk factors. Josiah Inquiry Pt receiving controlled substance: No Vital Signs: 04/24/25 07:13 04/24/25 07:24 04/24/25 07:31 Temperature 97.8 F Temperature Source Oral Pulse Rate 74 74 Pulse Rate [Right] 88 Respiratory Rate 18 Blood Pressure 217/100 H 200/97 H Blood Pressure [Right Arm] 211/108 H Blood Pressure Mean Blood Pressure Mean [Right Arm] 142 02 Sat by Pulse Oximetry 97 99 98 Oxygen Delivery Method Room Air 04/24/25 08:30 04/24/25 09:01 04/24/25 09:31 Temperature Temperature Source Pulse Rate 65 63 63 Pulse Rate [Right] Respiratory Rate Blood Pressure 167/90 H 177/83 H 189/84 H Blood Pressure [Right Arm] Blood Pressure Mean Blood Pressure Mean [Right Arm] 02 Sat by Pulse Oximetry 97 96 99 Oxygen Delivery Method 04/24/25 10:00 04/24/25 11:07 Temperature 98.1 F Temperature Source Pulse Rate 66 66 Pulse Rate [Right] Respiratory Rate 20 Blood Pressure 180/78 H 180/78 H Blood Pressure [Right Arm] Blood Pressure Mean 112 Blood Pressure Mean [Right Arm] 02 Sat by Pulse Oximetry 98 Oxygen Delivery Method Lab Data Lab Results 04/24/25 07:19: Urine Color Yellow, Urine Appearance Clear, Urine pH 6.5, Ur Specific [place] 1.020, Urine Protein Negative, Urine Glucose (UA) Negative, Urine Ketones Negative, Urine Blood Negative, Urine Nitrate Negative, Urine Bilirubin Negative, Urine Urobilinogen 0.2, Ur Leukocyte Esterase Negative, Urine RBC None, Urine WBC Occasional, Ur Squamous Epith Cells Occasional, Urine Bacteria Trace 04/24/25 07:30: WBC 6.6, RBC 3.85 L, Hgb 12.2, Hct 37.6, MCV 97.7, MCH 31.7 H, MCHC 32.4, RDW 14.4, Plt Count 247, MPV 9.8, Neut % (Auto) 61.1, Lymph % (Auto) 26.4, [place] % (Auto) 8.6, Eos % (Auto) 2.6, Baso % (Auto) 0.5, Neut # (Auto) 4.0, Lymph # (Auto) 1.7, [place] # (Auto) 0.6, Eos # (Auto) 0.2, Baso # (Auto) 0.0, Sodium 142, Potassium 3.3 L, Chloride 107, Carbon Dioxide 30, Anion Gap 8.3, BUN 20 H, Creatinine 1.00, Estimated Creat Clear 42, Estimated GFR 54 L, Est GFR ( Amer) 65, Glucose 87, Calcium 9.6, Total Bilirubin 1.0, AST 22, ALT 10 L, Alkaline Phosphatase 89, Troponin I 0.06 H, Total Protein 7.0, Albumin 4.0, Globulin 3.0, Albumin/Globulin Ratio 1.3, Lipase 83, HCV Ab SANYA w/Rflx PCR Qn Negative, HIV Ag/Ab Combo Qual Negative 04/24/25 08:20: Lactate 0.7 04/24/25 10:20: Troponin I 0.08 H 04/24/25 07:30 04/24/25 07:30 Orders (Tests/Meds): ED MEDICATIONS Discontinued Medications Generic Name Dose Route Start Last Admin Trade Name Brenda PRN Reason Stop Dose Admin Acetaminophen 1,000 mg 04/24/25 08:12 04/24/25 08:16 Acetaminophen 500mg Tab PO 04/24/25 08:13 1,000 mg ONCE ONE Administration Iopamidol 80 ml 04/24/25 08:14 04/24/25 08:15 Iopamidol-370 (76%);100ml Bottle IV 04/24/25 08:15 80 ml ONCE ONE Administration Ketorolac Tromethamine 15 mg 04/24/25 08:12 04/24/25 08:16 Ketorolac 30mg/Ml Vial IV 04/24/25 08:13 15 mg ONCE ONE Administration Morphine Sulfate 2 mg 04/24/25 07:41 04/24/25 07:56 Morphine 4mg/Ml Syringe IV 04/24/25 07:42 2 mg ONCE ONE Administration Ondansetron HCl 4 mg 04/24/25 07:41 04/24/25 07:56 Ondansetron 4mg/2ml Vial IV 04/24/25 07:42 4 mg ONCE ONE Administration Sodium Chloride 10 ml 04/24/25 08:14 04/24/25 08:15 Sodium Chloride 0.9% 10ml Syr (Rad Only) IV 04/24/25 08:15 10 ml ONCE ONE Administration Sodium Chloride 50 ml 04/24/25 08:14 04/24/25 08:15 0.9 % Sodium Chloride 50 Ml Vial IV 04/24/25 08:15 50 ml ONCE ONE Administration ORDERS Category Date Time Status CT angio abdomen pelvis Stat Cat Scan 04/24/25 07:41 Completed CTA Chest [CT angio chest - dissection] Stat Cat Scan 04/24/25 07:41 Completed XR chest portable Stat Exams 04/24/25 07:31 Completed CBC w/Auto Diff [Complete Blood Count Auto Diff] Stat Lab 04/24/25 07:30 Completed CMP [Comprehensive Metabolic Panel] Stat Lab 04/24/25 07:30 Completed HIV Combo Stat Lab 04/24/25 07:30 Completed Hepatitis C Ab Qual. W/ RFX Stat Lab 04/24/25 07:30 Completed Lactic Acid Stat Lab 04/24/25 08:20 Completed Lipase Stat Lab 04/24/25 07:30 Completed Trop I [Troponin I] Stat Lab 04/24/25 07:30 Completed Troponin I Q3H Lab 04/24/25 10:20 Completed Urinalysis-Acute [Urinalysis and Microscopic] Stat Lab 04/24/25 07:19 Completed HEART Score History (anamnesis): Slightly suspicious ECG: Non-specific disturbance Age: >65 years Risk factors: 1-2 risk factors Troponin: 1-3x normal limit HEART Score: 5 Medical Decision Narrative: In summary, this 79-year-old female presents to the emergency department today with back pain. On initial evaluation patient is afebrile, hypertensive initially 250s, improving without intervention, otherwise stable. She does not have a known history of hypertension. She is warm and well-perfused with full pulses and brisk capillary refill. No lower extremity edema. Heart is regular rate and rhythm and lung sounds are clear to station bilaterally with no increased equal breathing. Her abdomen is soft nontender nondistended, she does have reproducible lumbar paraspinal back pain nothing in the midline. She is also tender over the left CVA. There is no rashes or erythema on the back. No suspicious for kidney stone given that she has had this before, however given her hypertension and age and comorbidities, especially smoking history, cannot rule out aortic dissection we will proceed with cross-sectional imaging of the chest and abdomen in addition to evaluating for stone and hydronephrosis. Urinalysis ordered and reviewed by myself and unremarkable for any blood or signs of infection. Will treat pain with morphine Zofran Tylenol Toradol reassess. Also working up for atypical ACS presentation given the back pain. Her troponin is mildly elevated at 0.06, I dependently interpreted her EKG to demonstrate normal sinus rhythm with no obvious acute ischemic ST change. Meets criteria for LVH, not acutely actionable. Repeat EKG demonstrates normal sinus rhythm with no dynamic changes. She does have borderline elevation in V3, but that is isolated. And her pain is improved on reassessment. She never had chest pain or shortness of breath. Heart score 5. Will give her expedited cardiology follow-up for tomorrow As she is adamant about discharge. She is offered admission to the hospital, but Would prefer to manage at home which is felt to be reasonable given she will stay with family and will have cardiology follow-up tomorrow. Chest x-ray independently interpreted by myself demonstrated no acute intrathoracic process. Confirmed by radiology final read Suspect lumbar strain is most likely, pain improving remains neurovascular intact. Unfortunately, on recheck, troponin increasing to 0.08. She does have a heart score 5. I have recommended that patient be admitted to the hospital for observation, echocardiogram and cardiology consultation inpatient. She adamantly refuses. She is able to verbalize back to me the risks of leaving including heart attack and . She is alert and oriented and GCS 15. She will be signed out AGAINST MEDICAL ADVICE. She she has been made an appointment for cardiology tomorrow and will follow-up in their office. She is discharged in hemodynamically stable condition and resting comfortably. Critical Care Critical Care Time Critical Care Time: No
[2025-04-24 07:21] LABS: Microscopic, Urine URINE MICROSCOPIC (MICROSCOPIC)
[2025-04-24 07:24] LABS: Bilirubin,Urine Negative (Negative); Color,Urine YELLOW (Yellow); Glucose,Urine (UA) Negative (Negative); Ketones,Urine Negative (Negative); Leukocyte Esterase,Urine Negative (Negative); PH,Urine 6.5 (5.0-8.5); Protein,Urine Negative (Negative); Specific Gravity, Urine 1.020 (1.005-1.030); Urobilinogen,Urine 0.2 EU/dl (0.2)
--- NOTE | 2025-04-24 07:31 | XR_ITS ---
PROCEDURE INFORMATION: Exam: XR Chest Exam date and time: 04/24/2025 7:46 AM Age: 79 years old Clinical indication: Pain; Cough and shortness of breath; Other: Cp; Additional info: Cough, cp TECHNIQUE: Imaging protocol: Radiologic exam of the chest. Views: 1 view. COMPARISON: CT LUNG SCREENING 04/08/2019 1:29 PM FINDINGS: Lungs: Unremarkable. No consolidation. Pleural spaces: Unremarkable. No pleural effusion. No pneumothorax. Heart/Mediastinum: Mild cardiomegaly Bones/joints: Unremarkable. IMPRESSION: No acute findings.
[2025-04-24 07:33] LABS: Bacteria,Urine Trace /lpf; Squamous Epithelial Cell,Urine Occasional #/hpf (0-5); WBC,Urine Occasional #/hpf (0-3)
[2025-04-24 07:39] LABS: Hematocrit 37.6 % (37.0-47.0); Hemoglobin 12.2 g/dL (12.2-16.2); Immature Granulocytes % 0.8 %; Mean Corpuscular HGB Conc 32.4 g/dL (31.8-35.4); Mean Corpuscular Hemoglobin 31.7 pg (27.0-31.2); Mean Corpuscular Volume 97.7 fl (81-99); Nucleated Red Blood Cells % 0 %; Platelet Count 247 K/mm3 (142-424); Red Blood Count 3.85 M/mm3 (4.20-5.40); Red Cell Distribution Width-SD 51.8 fL; White Blood Count 6.6 K/mm3 (4.8-10.8)
--- NOTE | 2025-04-24 07:41 | CT_ITS ---
PROCEDURE INFORMATION: Exam: CTA Chest With Contrast CTA Abdomen and Pelvis With Contrast Exam date and time: 04/24/2025 8:06 AM Age: 79 years old Clinical indication: Other: Tearing back pain, hypertensive, R/O dissection TECHNIQUE: Imaging protocol: Computed tomographic angiography of the chest with contrast. Exam focused on the arteries. Computed tomographic angiography of the abdomen and pelvis with contrast. Exam focused on the arteries. 3D rendering (Not supervised by radiologist): MIP and/or 3D reconstructed images were created by the technologist. Radiation optimization: All CT scans at this facility use at least one of these dose optimization techniques: automated exposure control; mA and/or kV adjustment per patient size (includes targeted exams where dose is matched to clinical indication); or iterative reconstruction. Contrast material: ISOVUE; Contrast volume: 80 ml; Contrast route: INTRAVENOUS (IV); COMPARISON: CR XR CHEST PORTABLE 04/24/2025 7:46 AM FINDINGS: VASCULATURE: Pulmonary arteries: No evidence of pulmonary embolus to the segmental level. Aorta: No aneurysm of the aorta. No dissection of the aorta. Celiac trunk and mesenteric arteries: No occlusion or significant stenosis. Renal arteries: No occlusion or significant stenosis. Right iliac arteries: No occlusion or significant stenosis. Left iliac arteries: No occlusion or significant stenosis. CHEST: Lungs: Mild panlobular emphysematous changes. 10 mm pleural-based nodule right lower lobe series 5, image 97. Pleural spaces: Unremarkable. No pneumothorax. No pleural effusion. Heart: There is calcification of the aortic valve annulus. There is calcification of the mitral valve annulus. Coronary arteries: Coronary artery calcifications may indicate coronary artery disease. ABDOMEN AND PELVIS: Liver: Subcentimeter low attenuation area in the liver is too small for characterization. Gallbladder and biliary ducts: Unremarkable. No calcified stones. No ductal dilation. Pancreas: Unremarkable. No mass. No ductal dilation. Spleen: Unremarkable. No splenomegaly. Adrenal glands: Unremarkable. No mass. Kidneys and ureters: There is no evidence of renal or ureteral calcifications. There is no evidence of renal or ureteral calcifications. Stomach and bowel: Rectum is distended 6 cm with fecal material consistent with fecal impaction. Diverticulosis of the rectosigmoid. No diverticulitis Appendix: No evidence of appendicitis. Intraperitoneal space: Unremarkable. No free air. No significant fluid collection. Urinary bladder: Unremarkable. No mass. Reproductive: Unremarkable as visualized. Lymph nodes: Unremarkable. No enlarged lymph nodes. Bones/joints: Compression fractures of unknown age T12 and L1 Soft tissues: Unremarkable. IMPRESSION: 1. No evidence of pulmonary embolus to the segmental level. 2. No aneurysm of the aorta. 3. No dissection of the aorta. 4. 10 mm pleural-based nodule right lower lobe series 5, image 97. For both low risk and high risk patients, consider CT Chest at 3 months, PET/CT, or biopsy. (Reference: Soren) References: Soren Bear, et al. Guidelines for Management of Incidental Pulmonary Nodules Detected on CT Images: From the Fleischner Society 2017. Radiology. 2017;284(1):228-243.
[2025-04-24 07:47] LABS: Alanine Aminotransferase 10 U/L (12-78); Albumin Level 4.0 g/dl (3.5-5.0); Albumin/Globulin Ratio 1.3 (1.1-1.8); Alkaline Phosphatase 89 U/L (38-126); Anion Gap 8.3 mEq/L (5-15); Aspartate Amino Transferase 22 U/L (14-36); Bilirubin,Total 1.0 mg/dl (0.2-1.3); Blood Urea Nitrogen 20 mg/dl (7-17); Calcium 9.6 mg/dl (8.4-10.2); Carbon Dioxide 30 mmol/L (22.0-30.0); Chloride 107 mmol/L (98-107); Creatinine Clearance Estimated 42 mL/min (50-200); Creatinine,Serum 1.00 mg/dl (0.52-1.04); Estimated Glomerular Filt Rate 54 ml/min (>60); GFR (African American) 65 ML/MIN (>60); Globulin 3.0 g/dL (1.3-3.2); Glucose 87 mg/dl (74-100); Lipase 83 U/L (23-300); Potassium 3.3 mmoL/L (3.5-5.1); Sodium 142 mmol/L (136-145); Total Protein,Serum 7.0 g/dl (6.3-8.2)
[2025-04-24] MEDS: ONDANSETRON 4MG/2ML VIAL 4 MG IV (07:56)
[2025-04-24] MEDS: MORPHINE 4MG/ML SYRINGE 2 MG IV (07:56)
[2025-04-24 07:58] LABS: Troponin I 0.06 ng/ml (0.00-0.034)
[2025-04-24] MEDS: IOPAMIDOL-370 (76%);100ML BOTTLE 80 ML IV (08:15)
[2025-04-24] MEDS: 0.9 % SODIUM CHLORIDE 50 ML VIAL IV (08:15)
[2025-04-24] MEDS: SODIUM CHLORIDE 0.9% 10ML SYR (RAD ONLY) 10 ML IV (08:15)
[2025-04-24] MEDS: ACETAMINOPHEN 500MG TAB 1000 MG PO (08:16)
[2025-04-24] MEDS: KETOROLAC 30MG/ML VIAL 15 MG IV (08:16)
--- NOTE | 2025-04-24 08:16 | ECG_ITS ---
APPROVED REPORT Exam: Resting ECG HR:69 bpm ECG Measurements Heart Rate 69 AXES LA 145 P 73 QRSd 94 QRS -14 QT 390 T 74 QTc 408 Conclusion SINUS RHYTHM VOLTAGE CRITERIA FOR LVH [MEETS CRITERIA IN ONE OF: R(aVL), S(V1), R(V5), R(V5/V6)+S(V1)] NONSPECIFIC T-WAVE ABNORMALITY ABNORMAL ECG UNCONFIRMED REPORT Electronically signed by : YVETTE LORENZO, 04/25/2025 23:06:07
[2025-04-24 09:08] LABS: Hepatitis C Ab Qual. W/ RFX NEGATIVE (Negative)
--- NOTE | 2025-04-24 09:49 | ECG_ITS ---
APPROVED REPORT Exam: Resting ECG HR:60 bpm ECG Measurements Heart Rate 60 AXES VA 157 P 62 QRSd 104 QRS -22 QT 402 T 76 QTc 404 Conclusion SINUS RHYTHM WITH SINUS ARRHYTHMIA BORDERLINE LEFT AXIS DEVIATION [QRS AXIS < -20] LEFT VENTRICULAR HYPERTROPHY AND ST-T CHANGE [VOLTAGE CRITERIA PLUS ST/T ABNORMALITY] ABNORMAL ECG UNCONFIRMED REPORT Electronically signed by : Huy Carter, 04/24/2025 16:10:34
[2025-04-24 10:50] LABS: Troponin I 0.08 ng/ml (0.00-0.034)
== END 2025-04-24 11:08 | disposition left against medical advice (07) ==
PROVIDERS: Emergency Provider Emergency Medicine; PCP Family Medicine
DX: M54.50 Low back pain, unspecified (principal); R91.1 Solitary pulmonary nodule; E78.5 Hyperlipidemia, unspecified; R94.31 Abnormal electrocardiogram [ECG] [EKG]; R30.0 Dysuria; F17.210 Nicotine dependence, cigarettes, uncomplicated
CPT/HCPCS: 71045; 71275; 74174; 80053; 81001; 83605; 83690; 84484; 85025; 86803; 87389; 93005; 96374; 96375; 99285; J1885; J2270; J2405; Q9967

== ENCOUNTER 2025-05-03 13:34 | Outpatient (CLI) | payer MEDICARE, SELFPAY ==
--- NOTE | 2025-05-03 13:45 | CA_ITS ---
APPROVED REPORT EXAM: Comprehensive 2D, Doppler, and color-flow Echocardiogram Girl Friday: Sarita Maldonado CRT Ht: 4 ft 11 in Wt: 110lbs BSA: 1.43 BP: 194/82 mmHg Indications: Shortness of Breath, Fatigue, Hyperlipidemia, Smoker, bilateral double mastectomy 2D Dimensions LA Volume 21.70 mL LA Volume Index 14.90 mL/m2 (M/F) 16-34 M-Mode Dimensions RVDd 2.26 cm (0.9-2.6) LA Diam 3.41 cm (1.9-4.0) LVDd 3.70 cm (3.5-5.7) LVDs 2.69 cm (3.5-5.7) IVSd 1.44 cm (0.6-1.1) PWd 0.81 cm (0.6-1.1) EF (Teich) 53.90% FS 27.30% EDV (Teich) 58.10 mL TAPSE 1.87 (<1.7) ESV (Teich) 26.80 mL LV Diastology E Decel Time 330 (160-240 msec) E/A Ratio 0.66 MED A' 11.50 cm/s LAT A' 12.90 cm/s Aortic Valve AI PHT 600.00 ms AO Peak GR. 7.10 mmHg Mitral Valve MV E Max John. 48.0 (40-130 cm/s) MV A Velocity 73.0 (40-130 cm/s) E/A Ratio 0.66 MV PHT 97.0 ms Tricuspid Valve TR P. Velocity 220.00 cm/s RAP Estimate 10.00 mmHg RVSP 29.40 mmHg Left Ventricle The left ventricle is normal size. Left ventricular systolic function is normal. The left ventricular ejection fraction is within the normal range. There is increased LV wall thickness. There is normal LV segmental wall motion. Transmitral Doppler flow pattern suggests impaired LV relaxation. LVEF is 55% Right Ventricle The right ventricle is mildly dilated. The right ventricular systolic function is normal. Atria The left atrium size is normal. The right atrium size is normal. There is no color Doppler evidence of interatrial shunt. Aortic Valve The aortic valve is mildly thickened. There is no hemodynamically significant aortic valvular stenosis. Mild aortic regurgitation is present. Mitral Valve The mitral valve is normal in structure. No evidence of mitral valve stenosis. Trace mitral regurgitation is present. Tricuspid Valve The tricuspid valve leaflets are thin and pliable. Mild tricuspid regurgitation. RVSP is 20-25 mmHg. Pulmonic Valve The pulmonary valve is grossly normal in structure. Trace pulmonic valve regurgitation is present. Great Vessels The aortic root is normal in size. IVC is normal in size and collapses >50% with inspiration. Pericardium There is no pericardial effusion. Other Information Study Quality: Technically Difficult Conclusion Normal biventricular systolic function. Mild RV dilation. Mild AI, mild TR. Electronically signed by : Lashonda Brewer MD 05/07/2025 21:01:50
== END 2025-05-03 23:59 | disposition home or self-care (01) ==
LOC: RT 13:35
PROVIDERS: PCP Family Medicine; Visit Provider Nurse Practitioner
DX: I08.2 Rheumatic disorders of both aortic and tricuspid valves (principal); R94.31 Abnormal electrocardiogram [ECG] [EKG]; R79.89 Other specified abnormal findings of blood chemistry; E78.5 Hyperlipidemia, unspecified; F17.200 Nicotine dependence, unspecified, uncomplicated; Z90.13 Acquired absence of bilateral breasts and nipples
CPT/HCPCS: 93306

== ENCOUNTER 2025-07-13 14:50 | Outpatient (CLI) | payer MEDICARE, SELFPAY ==
--- NOTE | 2025-07-13 14:55 | CT_ITS ---
FINAL REPORT TECHNIQUE: Thin section axial images were obtained through the lungs using a low-dose technique per lung cancer screening protocol. Reconstruction images were obtained using the axial data. This study was performed with techniques to keep radiation doses as low as reasonably achievable, (ALARA). Individualized dose reduction techniques using automated exposure control or adjustment of mA and/or kV according to the patient's size were employed. CLINICAL HISTORY: low dose cancer screening current smoker 1/2 ppd x 23 years COMPARISON: Low-dose chest CT dated 04/08/2019 and CTA chest dated 04/24/2025. FINDINGS: CTDLvol: 2.90 DLP: 100.81 Current smoker 11.5 pack year history Lungs: There are several subpleural predominant left upper lobe pulmonary nodules. For example, there is a 3 mm nodule on series 4 image 18. All of these appear stable. There are also subpleural predominant right upper lobe nodules, which also appear stable. There is a 4 mm nodule on series 4 image 29, was previously 4 mm. There is new atelectasis at the right lung base. The lungs are otherwise clear. Lymph nodes: No thoracic lymphadenopathy. Mediastinum: There are prominent coronary artery calcifications. The heart is mildly enlarged. Pleura/pericardium: No pleural or pericardial effusion. Other: No acute abnormality in the upper abdomen. IMPRESSION: Stable bilateral upper lobe predominant 4 mm or less pulmonary nodules. Prominent coronary artery calcifications. Lung RADS: 2S Modifier S: Coronary artery calcifications. Recommendation: 12-month follow-up low-dose chest CT. Reviewed, Interpreted and Dictated by Patsy Phan MD Transcribed by Evon Solitario Authenticated and [facility]
== END 2025-07-13 23:59 | disposition home or self-care (01) ==
LOC: RAD 14:51
PROVIDERS: PCP Family Medicine; Visit Provider Nurse Practitioner
DX: F17.210 Nicotine dependence, cigarettes, uncomplicated; I25.10 Atherosclerotic heart disease of native coronary artery without angina pectoris; I51.7 Cardiomegaly; R91.8 Other nonspecific abnormal finding of lung field
CPT/HCPCS: 71271